=== PATIENT | female | born 2000 | race Caucasian/White ===

== ENCOUNTER → 2023-02-22 | Outpatient (CLI) | payer BC ==
[~2023-02-22] MED LIST: Albuterol 0.083% Neb Soln 2.5 MG/3 ML UD IH ONE; PREDNISONE50 MG PO
== END ==
LOC: COL.CARD 14:49
DX: R50.9 Fever, unspecified (principal)

== ENCOUNTER → 2023-03-01 | Outpatient (CLI) | payer BC ==
[~2023-03-01] MED LIST changes: +Methacholine Vial A (Clear Label Base-Cntrl) IH ONE; +Methacholine Vial B (Red Label) 0.0625 MG/ML 3 ML VIAL.NEB IH ONE; +Methacholine Vial C (Orange Label) 0.25 MG/ML 3 ML VIAL.NEB IH ONE
== END ==
LOC: COL.CARD 13:30
DX: R05.9 Cough, unspecified (principal)
CPT/HCPCS: J7674